=== PATIENT | female | born 1935 | race African-American/Black ===

== ENCOUNTER 2022-07-01 12:42 | Emergency (ER) | payer OTHER, MEDICAID ==
[~2022-07-01] VITALS: Ht 152.4 cm; Wt 86.2 kg
[~2022-07-01 12:42] MED LIST: AMLO10TA87 PO; APIX5TAB PO; ASPI81EC97 PO; ATI.5 PO; FERR325E14 PO; FLONAS NS; HYDR-3229 PO; HYDR-3298 PO; HYDR4TAB6 PO; LORA10TA19 PO; MECL-231 PO; METF-346 PO; METO50TE2; SIMV-31 PO; SUMA100T21 PO; [UNRECOGNIZED DRUG - CODE] PO
[2022-07-01 12:47] VITALS: BP 154/106
--- NOTE | 2022-07-01 13:05 | NUR ---
87 y/o female biba from home, c/o rectal bleeding, dark red bleeding with clots since last night. denies pain, n/v/d. pmh: copd, gout, dm2, htn, chronic chest pain, chronic back pain, osteoarthritis, pulomary embolism nka med: see list
--- NOTE | 2022-07-01 13:23 | NUR ---
LAB AT BEDSIDE.
[2022-07-01 14:11] LABS: BASOPHILS % (AUTO) 0.6 % (0.0-2.0); EOSINOPHILS # (AUTO) 0.2 K/uL (0-0.4); EOSINOPHILS % (AUTO) 3.2 % (0.0-4.0); HEMATOCRIT 23.1 % (36-48); HEMOGLOBIN 7.1 g/dL (12.0-16.0); LYMPHOCYTES # (AUTO) 1.2 K/uL (2.5-16.5); LYMPHOCYTES % (AUTO) 16.2 % (20.5-51.1); MEAN CORPUSCULAR HEMOGLOBIN 25 pg (27-31); MEAN CORPUSCULAR HGB CONC 31 g/dL (33-37); MEAN CORPUSCULAR VOLUME 79.8 fL (80-94); MONOCYTES # (AUTO) 0.5 K/uL (0.8-1.0); MONOCYTES % (AUTO) 6.8 % (1.7-9.3); NEUTROPHILS # (AUTO) 5.6 K/uL (1.8-7.7); NEUTROPHILS % (AUTO) 73.2 % (42.2-75.2); PLATELET COUNT (AUTO) 189 K/uL (140-450); RED CELL DISTRIBUTION WIDTH 19.5 % (11.6-13.7); WHITE BLOOD COUNT (AUTO) 7.6 K/uL (4.8-10.8)
[2022-07-01 14:14] LABS: ANION GAP 5.6 (8-16); CARBON DIOXIDE 39.7 mmol/L (21-32); CHLORIDE 106 mmol/L (98-107); CREATININE 1.6 mg/dL (0.6-1.3); GLUCOSE 119 mg/dL (74-106); POTASSIUM 4.3 mmol/L (3.5-5.1); SODIUM SERUM 147 mmol/L (136-145); UREA NITROGEN, BLOOD 39 mg/dL (7-18)
[2022-07-01 14:22] LABS: BILIRUBIN,DIRECT 0.1 mg/dL (0.0-0.3); TOTAL BILIRUBIN 0.2 mg/dL (0.0-1.0)
--- NOTE | 2022-07-01 14:59 | NUR ---
DR ANDERSON AT BEDSIDE.
--- NOTE | 2022-07-01 15:51 | NUR ---
PT TO CT VIA [facility].
[2022-07-01] MEDS ORDERED: FURO-570 PO (16:52)
[2022-07-01] MEDS ORDERED: ALLO100T21 PO (16:52)
[2022-07-01] MEDS ORDERED: LISI2.5T12 PO (16:52)
[2022-07-01] MEDS ORDERED: LORA10TA19 PO (16:52)
[2022-07-01] MEDS ORDERED: LINA5TAB PO (16:52)
[2022-07-01] MEDS ORDERED: METO50TE2 PO (16:52)
[2022-07-01] MEDS ORDERED: POTA8TAB19 PO (16:52)
[2022-07-01] MEDS ORDERED: ROSU10TA1 PO (16:52)
[2022-07-01] MEDS ORDERED: AMLO10TA PO (16:52)
[2022-07-01] MEDS ORDERED: DOCU-300 PO (16:52)
[2022-07-01] MEDS ORDERED: DAPA5TAB PO (16:52)
[2022-07-01 18:19] VITALS: BP 150/63
--- NOTE | 2022-07-01 18:41 | NUR ---
CALLED [facility] AND GAVE REPORT TO LATONIA NIX. PT WILL BE GOING TO ROOM [id number]. [phone] EXT: [phone]. LEAN ENGINEER TIME PER [facility] 60-90 MIN.
[2022-07-01] MEDS ORDERED: SODIUM CHLORIDE FLUSH 10 ML SYR IVF SCH (21:00)
== END 2022-07-01 19:11 | disposition short-term general hospital (02) ==
LOC: MED 12:42
DX: K92.2 Gastrointestinal hemorrhage, unspecified (principal); Z20.822 Contact with and (suspected) exposure to COVID-19; D50.0 Iron deficiency anemia secondary to blood loss (chronic); Z86.010 Personal history of colon polyps; Z87.19 Personal history of other diseases of the digestive system; E11.9 Type 2 diabetes mellitus without complications; I10 Essential (primary) hypertension; Z79.899 Other long term (current) drug therapy; Z79.82 Long term (current) use of aspirin; Z79.01 Long term (current) use of anticoagulants
CPT/HCPCS: 36415; 74177; 80048; 80076; 85025; 86886; 86900; 86901; 87426; 99285; Q9967